=== PATIENT | male | born 1940 | race Caucasian/White ===

== ENCOUNTER 2024-02-27 13:22 | Emergency (ER) | payer OTHER, BC ==
[2024-02-27 13:46] VITALS: PULSE 50; RESP 18; TEMP 97.4; BMI 22.2
[2024-02-27 15:31] VITALS: BP 157/72
== END 2024-02-27 14:50 | disposition home or self-care (01) ==
LOC: FER 13:22
DX: S70.01XA Contusion of right hip, initial encounter (principal); W01.0XXA Fall on same level from slipping, tripping and stumbling without subsequent striking against object, initial encounter
CPT/HCPCS: 73502-TC-RT-FY; 99283-25